=== PATIENT | female | born 1955 | race American Indian/Alaskan Native ===

== ENCOUNTER 2019-03-25 20:18 | Emergency (ER) | payer SELFPAY ==
[2019-03-25 20:26] VITALS: BP 188/87
--- NOTE | 2019-03-25 20:47 | Event Note ---
ED Screening Note ED Screening Note: pt presents for chronic lower back pain that radiates to the BLE that began bothering her today pt states she has been moving heavy things while moving to [place] pt denies any fall or injury pt has pmhx of spinal stenosis no numbness or weakness no urinary sx no bowel or bladder incontinence pt does not have a spine doctor in [place], states she is going to see her new PCP on April 20 PMHx bipolar and schizophrenia pt is on zoloft and zyprexa pt did not drive to the emergency room today +smoker non drinker no drug use This initial assessment/diagnostic orders/clinical plan/treatment(s) is/are subject to change based on patients health status, clinical progression and re- assessment by fellow clinical providers in the ED. Further treatment and workup at subsequent clinical providers discretion. Patient/guardian urged not to elope from the ED as their condition may be serious if not clinically assessed and managed.
[2019-03-25] MEDS ORDERED: DELTASONE PO ONE (21:52)
[2019-03-25] MEDS ORDERED: TORADOL IM ONE (21:52)
--- NOTE | 2019-03-25 22:32 | Emergency Department Report ---
ED Back Pain/Injury HPI - General Chief Complaint: Extremity Injury, Lower Stated Complaint: BACK/LEG/NECK PAIN Time Seen by Provider: 03/25/19 20:44 Source: patient Limitations: No Limitations - History of Present Illness Initial Comments: This is a 64-year-old female nontoxic, well nourished in appearance, no acute signs of distress presents to the ED with c/o of acute on chronic lower back pain. Patient stated that that was moving and developed this pain. Patient states has history of sciatica nerve pain which is similar symptoms as today. Patient states that pain radiates through to his bilateral lower extremity. Patient denies any trauma. Denies any bladder or bowel instability. Patient denies any urinary symptoms. Denies any fever, chills, nausea, vomiting, headache, stiff neck, chest pain or shortness of breath. Patient denies any numbness or tingling. Patient stated allergies to Flagyl. MD Complaint: back pain -: days(s) Similar Symptoms Previously: Yes Place: home Radiation: left leg, right leg Severity: mild Severity scale (0 -10): 8 Quality: aching Consistency: intermittent Improves With: immobilization, sitting upright Worsens With: movement, walking Context: while lifting, turning/twisting Associated Symptoms: denies other symptoms. denies: confusion, weakness, chest pain, numbness, difficulty walking, cough, difficulty urinating, diaphoresis, incontinence, fever/chills, constipation, headaches, abdominal pain, loss of appetite, malaise, nausea/vomiting, rash, seizure, shortness of breath, syncope - Related Data Previous Rx's Medication Instructions Recorded Last Taken Type Acetaminophen/Codeine [Tylenol 1 tab PO Q6H PRN #12 tab 03/25/19 Unknown Rx /Codeine # 3 tab] Allergies Allergy/AdvReac Type Severity Reaction Status Date / Time metronidazole [From Flagyl] Allergy Seizure Verified 03/25/19 20:48 ED Review of Systems ROS: Stated complaint: BACK/LEG/NECK PAIN Other details as noted in HPI Constitutional: denies: chills, fever Eyes: denies: eye pain, eye discharge, vision change ENT: denies: ear pain, throat pain Respiratory: denies: cough, shortness of breath, wheezing Cardiovascular: denies: chest pain, palpitations Endocrine: no symptoms reported Gastrointestinal: denies: abdominal pain, nausea, diarrhea Genitourinary: denies: urgency, dysuria, discharge Musculoskeletal: back pain. denies: joint swelling, arthralgia Skin: denies: rash, lesions Neurological: denies: headache, weakness, paresthesias Psychiatric: denies: anxiety, depression Hematological/Lymphatic: denies: easy bleeding, easy bruising ED Past Medical Hx - Past Medical History Previous Medical History?: Yes Hx Psychiatric Treatment: Yes (Bipolar, Schizophrenia) Additional medical history: Spinal Stenosis. Chronic Back Pain - Surgical History Hx Appendectomy: Yes Additional Surgical History: Hysterectomy, Left hand Surgery - Social History Smoking Status: Current Every Day Smoker Substance Use Type: None - Medications Home Medications: Home Medications Medication Instructions Recorded Confirmed Last Taken Type Acetaminophen/Codeine [Tylenol 1 tab PO Q6H PRN #12 tab 03/25/19 Unknown Rx /Codeine # 3 tab] ED Physical Exam - General Limitations: No Limitations General appearance: alert, in no apparent distress - Head Head exam: Present: atraumatic, normocephalic - Eye Eye exam: Present: normal appearance - Neck Neck exam: Present: normal inspection, full ROM. Absent: tenderness, meningismus, lymphadenopathy - Extremities Exam Extremities exam: Present: normal inspection, full ROM - Back Exam Back exam: Present: normal inspection, full ROM, paraspinal tenderness (lumbar paraspinal). Absent: tenderness, CVA tenderness (R), CVA tenderness (L), muscle spasm, vertebral tenderness, rash noted - Expanded Back Exam Expanded Back exam: Absent: saddle anesthesia Back exam: Negative Straight Leg Raising: Left, Right - Neurological Exam Neurological exam: Present: alert, oriented X3, normal gait - Psychiatric Psychiatric exam: Present: normal affect, normal mood - Skin Skin exam: Present: warm, dry, intact, normal color. Absent: rash ED Course Vital Signs 03/25/19 20:24 Temperature 98.0 F Pulse Rate 80 Respiratory 18 Rate Blood Pressure 188/87 O2 Sat by Pulse 99 Oximetry - Reevaluation(s) Reevaluation #1: 03/25/19 22:33 Patient is speaking in full sentences with no signs of distress noted. ED Medical Decision Making - Medical Decision Making This is a 64-year-old female that presents with low back strain. Patient is stable was examined by me. There is no spinal tenderness. There is no cauda equina syndrome during examination. No bladder or bowel instability. Patient received Toradol 30 mg IM and prednisone in the ED which stated that her symptoms has resolved and subsided. Patient is discharged with Tylenol #3. Patient was instructed not to operate any machinery while taking Tylenol #3 as they cause her drowsiness. Patient was referred to Follow-up with a primary care doctor in 3-5 days or if symptoms worsen and continue return to emergency room as soon as possible. At time of discharge, the patient does not seem toxic or ill in appearance. No acute signs of distress noted. Patient agrees to discharge treatment plan of care. No further questions noted by the patient. This chart is dictated with using [facility] Dictation Program Critical care attestation.: If time is entered above; I have spent that time in minutes in the direct care of this critically ill patient, excluding procedure time. ED Disposition Clinical Impression: Low back strain Qualifiers: Encounter type: initial encounter Qualified Code(s): S39.012A - Strain of muscle, fascia and tendon of lower back, initial encounter Sciatica Qualifiers: Laterality: bilateral Qualified Code(s): M54.31 - Sciatica, right side; M54.32 - Sciatica, left side Disposition: DC- TO HOME OR SELFCARE Is pt being admited?: No Does the pt Need Aspirin: No Condition: Stable Instructions: Low Back Strain (ED), Sciatica (ED), Acetaminophen/Codeine (By mouth) Additional Instructions: Follow-up with your primary care doctor in 3-5 days or if symptoms worsen such as bladder or bowel stability, chest pain, short of breath, numbness or tingling sensation in extremities, headache, dizziness, visual changes, nausea vomiting, or abdominal pain, return back to emergency room as was possible. Do not operate any machinery while taking Tylenol with codeine as this may cause drowsiness. Prescriptions: Acetaminophen/Codeine [Tylenol /Codeine # 3 tab] 1 tab PO Q6H PRN #12 tab PRN Reason: Pain , Severe (7-10) Referrals: PRIMARY CARE, [Referring] - 3-5 Days TREVA ANSARI MD [Staff Physician] - 3-5 Days [facility] [Outside] - 3-5 Days [facility] [Outside] - 3-5 Days
== END 2019-03-26 00:15 | disposition home or self-care (01) ==
LOC: ED 20:18
DX: S39.012A Strain of muscle, fascia and tendon of lower back, initial encounter (principal); M54.31 Sciatica, right side; M54.32 Sciatica, left side; F31.9 Bipolar disorder, unspecified; F20.9 Schizophrenia, unspecified; F17.200 Nicotine dependence, unspecified, uncomplicated; Z90.710 Acquired absence of both cervix and uterus; Z88.1 Allergy status to other antibiotic agents; X58.XXXA Exposure to other specified factors, initial encounter; Y93.89 Activity, other specified; Y92.89 Other specified places as the place of occurrence of the external cause; Y99.8 Other external cause status
CPT/HCPCS: 96372; 99282; J1885; J7512

== ENCOUNTER 2019-04-26 15:59 | Emergency (ER) | payer MEDICARE, OTHER ==
[2019-04-26 16:38] VITALS: BP 178/77
--- NOTE | 2019-04-26 16:41 | Emergency Department Report ---
ED Recheck HPI - General Chief Complaint: Back Pain/Injury Stated Complaint: OUT OF MEDS Time Seen by Provider: 04/26/19 16:37 Source: patient Mode of arrival: Ambulatory Limitations: No Limitations - History of Present Illness Initial Comments: pt is a 64 yo female who presents to the ED with c/o a medication refill. Pt states she is out of her zyprexa and zoloft, states she has an appt with her PCP on june 02, 2019. pt states she has not taken her medication in 1 month. she denies SI, HI, no hallucinations. she does not report any symptoms at all. PMHx of bipolar. pt takes zyprexa 15mg once daily and zoloft 100 mg BID. - Related Data Previous Rx's Medication Instructions Recorded Last Taken Type Acetaminophen/Codeine [Tylenol 1 tab PO Q6H PRN #12 tab 03/25/19 Unknown Rx /Codeine # 3 tab] OLANzapine [ZyPREXA] 15 mg PO DAILY 14 Days #28 tablet 04/26/19 Unknown Rx Sertraline [Zoloft] 100 mg PO BID 14 Days #28 tablet 04/26/19 Unknown Rx Allergies Allergy/AdvReac Type Severity Reaction Status Date / Time metronidazole [From Flagyl] Allergy Seizure Verified 03/25/19 20:48 ED Review of Systems ROS: Stated complaint: OUT OF MEDS Other details as noted in HPI Comment: All other systems reviewed and negative ED Past Medical Hx - Past Medical History Previous Medical History?: Yes Hx Psychiatric Treatment: Yes (Bipolar, Schizophrenia) Additional medical history: Spinal Stenosis. Chronic Back Pain - Surgical History Past Surgical History?: Yes Hx Appendectomy: Yes Additional Surgical History: Hysterectomy, Left hand Surgery - Social History Smoking Status: Current Every Day Smoker Substance Use Type: None - Medications Home Medications: Home Medications Medication Instructions Recorded Confirmed Last Taken Type Acetaminophen/Codeine [Tylenol 1 tab PO Q6H PRN #12 tab 03/25/19 Unknown Rx /Codeine # 3 tab] OLANzapine [ZyPREXA] 15 mg PO DAILY 14 Days #28 tablet 04/26/19 Unknown Rx Sertraline [Zoloft] 100 mg PO BID 14 Days #28 tablet 04/26/19 Unknown Rx ED Physical Exam - General Limitations: No Limitations General appearance: alert, in no apparent distress - Head Head exam: Present: atraumatic, normocephalic - Eye Eye exam: Present: normal appearance, PERRL - ENT ENT exam: Present: mucous membranes moist - Neurological Exam Neurological exam: Present: alert, oriented X3 - Psychiatric Psychiatric exam: Present: normal affect, normal mood - Skin Skin exam: Present: warm, dry, intact ED Course Vital Signs 04/26/19 16:37 Temperature 98.2 F Pulse Rate 76 Respiratory 18 Rate Blood Pressure 178/77 O2 Sat by Pulse 100 Oximetry ED Recheck MDM - Medical Decision Making pt is a 64 yo female who presents to the ED with c/o a medication refill. Pt states she is out of her zyprexa and zoloft, states she has an appt with her PCP on june 02, 2019. pt states she has not taken her medication in 1 month. she denies SI, HI, no hallucinations. she does not report any symptoms at all. PMHx of bipolar. pt takes zyprexa 15mg once daily and zoloft 100 mg BID. pts medications refilled for two weeks. advised pt please take medication as prescribed. please follow up with a primary care doctor in the next 2-3 days or the [facility]. future refills will need to be through a primary care doctor or mental health personnel. return to the emergency room immediately or call 911 for any new or worsening symptoms or if begin to have thoughts of hurting yourself, hurting others, or seeing or hearing things. Critical care attestation.: If time is entered above; I have spent that time in minutes in the direct care of this critically ill patient, excluding procedure time. ED Disposition Clinical Impression: Medication refill Disposition: DC-01 TO HOME OR SELFCARE Is pt being admited?: No Does the pt Need Aspirin: No Condition: Stable Additional Instructions: please take medication as prescribed. please follow up with a primary care doctor in the next 2-3 days or the [facility]. future refills will need to be through a primary care doctor or mental health personnel. return to the emergency room immediately or call 911 for any new or worsening symptoms or if begin to have thoughts of hurting yourself, hurting others, or seeing or hearing things. Prescriptions: Sertraline [Zoloft] 100 mg PO BID 14 Days #28 tablet OLANzapine [ZyPREXA] 15 mg PO DAILY 14 Days #28 tablet Referrals: [facility] [Outside] - 2-3 Days [facility] [Outside] - 2-[address] [facility] [Outside] - 2-3 Days [facility] [Provider Group] - 2-3 Days Time of Disposition: 16:43 Print Language: BELARUSIAN
== END 2019-04-26 16:47 | disposition home or self-care (01) ==
LOC: ED 15:59
DX: F31.9 Bipolar disorder, unspecified (principal); F20.9 Schizophrenia, unspecified; Z76.0 Encounter for issue of repeat prescription; M54.9 Dorsalgia, unspecified; G89.29 Other chronic pain; Z90.49 Acquired absence of other specified parts of digestive tract; Z90.710 Acquired absence of both cervix and uterus
CPT/HCPCS: 99282